=== PATIENT | male | born 1955 | race Caucasian/White ===

== ENCOUNTER 2018-03-13 10:44 | Day surgery (SDC) | payer MEDICARE ==
[2018-03-13] MEDS ORDERED: EPINEPHrine INJ 1 MG/ML 1ML AMP (10:45)
[2018-03-13] MEDS ORDERED: ROPIvacaine 0.5% 30 ML INJECTION (J2795 PER 1MG) (10:45)
[2018-03-13] MEDS ORDERED: dexameTHASONE 10 MG/1 ML VIAL PRES.FREE (J1100) (10:45)
[2018-03-13] MEDS: LR 1,000 ML IV (11:30)
[2018-03-13] MEDS ORDERED: fentaNYL 100 MCG/2 ML INJECTION (J3010) As Ordered ×2 (12:24→13:16)
[2018-03-13] MEDS ORDERED: MIDAZOLAM INJ 2 MG/2 ML VIAL (J2250) As Ordered ×2 (12:24→13:16)
[2018-03-13] MEDS: MIDAZOLAM INJ 2 MG/2 ML VIAL (J2250) IV (12:32)
[2018-03-13] MEDS: fentaNYL 100 MCG/2 ML INJECTION (J3010) IV ×3 (12:32→15:45)
[2018-03-13] MEDS ORDERED: LIDOCAINE 2% INJ 100 MG/5 ML SDV (FOR ANES.) As Ordered (13:16)
[2018-03-13] MEDS ORDERED: PROPOFOL 200 MG/20 ML VIAL As Ordered ×2 (13:16→14:58)
[2018-03-13] MEDS ORDERED: dexameTHASONE 4 MG/ML 1ML VIAL (J1100) As Ordered (13:16)
[2018-03-13] MEDS ORDERED: ONDANSETRON 4MG/2ML VIAL (J2405) As Ordered (13:16)
[2018-03-13] MEDS ORDERED: HYDROmorphone HCL 2 MG/ML 1ML VIAL (J1170) As Ordered (13:16)
[2018-03-13] MEDS ORDERED: ROCURONIUM BROMIDE 50 MG/5 ML VIAL As Ordered ×2 (13:16→14:23)
[2018-03-13] MEDS ORDERED: GLYCOPYRROLATE INJ 0.2 MG/ML 2 ML VIAL As Ordered ×3 (13:29→13:30)
[2018-03-13] MEDS ORDERED: NEOSTIGMINE 10 MG/10 ML VIAL (J2710) As Ordered (13:30)
[2018-03-13] MEDS ORDERED: ePHEDrine SULFATE 25 MG/5 ML(5MG/ML) SYRINGE As Ordered (14:03)
[2018-03-13] MEDS ORDERED: LABETALOL HCL 100 MG/20 ML VIAL As Ordered (14:30)
[2018-03-13] MEDS ORDERED: NORCO, ANEXSIA 5/325MG TABLET (HYDROcodone/ACETAMINOPHEN) As Ordered (15:36)
[2018-03-13] MEDS ORDERED: ONDANSETRON 4MG/2ML VIAL (J2405) IV (15:45)
[2018-03-13] MEDS ORDERED: LR 1,000 ML IV ×2 (15:45)
[2018-03-13] MEDS ORDERED: oxyCODONE 5MG TAB PO ×2 (15:45→16:00)
[2018-03-13] MEDS: NORCO, ANEXSIA 5/325MG TABLET (HYDROcodone/ACETAMINOPHEN) PO (15:45)
== END 2018-03-13 17:45 | disposition home or self-care (01) ==
LOC: M SDC 17:45
DX: S82.851A Displaced trimalleolar fracture of right lower leg, initial encounter for closed fracture (principal); W19.XXXA Unspecified fall, initial encounter; Y93.89 Activity, other specified; Y92.89 Other specified places as the place of occurrence of the external cause; Y99.8 Other external cause status; I25.10 Atherosclerotic heart disease of native coronary artery without angina pectoris; I25.2 Old myocardial infarction; I10 Essential (primary) hypertension; E78.00 Pure hypercholesterolemia, unspecified; E04.1 Nontoxic single thyroid nodule; K57.32 Diverticulitis of large intestine without perforation or abscess without bleeding; K21.9 Gastro-esophageal reflux disease without esophagitis; M12.9 Arthropathy, unspecified; M54.9 Dorsalgia, unspecified; R06.83 Snoring; C61 Malignant neoplasm of prostate; R32 Unspecified urinary incontinence; Z79.899 Other long term (current) drug therapy; Z79.82 Long term (current) use of aspirin; Z72.0 Tobacco use; Z98.84 Bariatric surgery status; Z92.3 Personal history of irradiation
CPT/HCPCS: 27822

== ENCOUNTER → 2018-09-04 | Outpatient (CLI) | payer MEDICARE ==
[~2018-09-04] MED LIST: AMLO5TAB6; ASPI1CHW2 PO; ASPI1TAB PO; ASPI325T PO; IBUP80TA PO; METO100T5 PO; MS C15TA8 PO; MULT1TAB10 PO; OMEP40CA2 PO; OXYC1TAB15 PO; PARO40TA2; PERC5TAB12 PO; PRAV40TA2; RANI150T PO; SENN-23 PO; VALS1TAB47; VITA500T3 PO
[2018-09-04 16:24] LABS: HEMATOCRIT 41.2 % (42.0-52.0); MEAN CORPUSCULAR HEMOGLOBIN 28.6 pg (27.0-33.0); MEAN CORPUSCULAR HGB CONC 31.6 g/dl (32.0-36.5); MEAN CORPUSCULAR VOLUME 90.7 fl (80.0-96.0); PLATELET COUNT, AUTOMATED 335 10^3/uL (150-450); RED BLOOD COUNT 4.54 10^6/uL (4.30-6.10); WHITE BLOOD COUNT 6.8 10^3/uL (4.0-10.0)
[2018-09-04 16:36] LABS: INR 0.98; PARTIAL THROMBOPLASTIN TIME 27.5 SECONDS (25.4-37.6); PROTHROMBIN TIME 13.1 SECONDS (12.1-14.4)
[2018-09-04 16:49] LABS: BLOOD UREA NITROGEN 13 MG/DL (7-18); CALCIUM LEVEL 8.9 MG/DL (8.8-10.2); CARBON DIOXIDE LEVEL 27 MEQ/L (21-32); CHLORIDE LEVEL 107 MEQ/L (98-107); CREATININE FOR GFR 1.15 MG/DL (0.70-1.30); GLOMERULAR FILTRATION RATE > 60.0 (>49); GLUCOSE, FASTING 108 MG/DL (70-100); POTASSIUM SERUM 4.1 MEQ/L (3.5-5.1); SODIUM LEVEL 140 MEQ/L (136-145)
--- NOTE | 2018-09-04 16:59 | REP ---
Chest two views HISTORY: Preop Comparison: 08/31/2011 The lungs are clear. There is pleural scarring along the left lateral border of the heart. The heart is normal in size. The pulmonary vasculature is normal in appearance. The bony structure is intact. IMPRESSION: No acute disease. Electronically Signed by Darren Padgett MD 09/04/2018 04:50 P
--- NOTE | 2018-09-04 22:32 | ECGEPIP ---
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 Electronically Signed On 09-04-2018 22:32:02 EST by Dyllan Mckenna
== END ==
LOC: M LAB 15:51
PROVIDERS: ATTEND Internal Medicine Cardiovascular Disease
DX: Z01.818 Encounter for other preprocedural examination (principal); S82.201A Unspecified fracture of shaft of right tibia, initial encounter for closed fracture; X58.XXXA Exposure to other specified factors, initial encounter; Y92.9 Unspecified place or not applicable

== ENCOUNTER 2018-09-06 09:56 | Day surgery (SDC) | payer MEDICARE ==
[~2018-09-06] VITALS: Ht 180.3 cm; Wt 99.2 kg
[~2018-09-06 09:56] MED LIST changes: -ASPI1TAB PO; -ASPI325T PO; -MS C15TA8 PO; -PERC5TAB12 PO; -SENN-23 PO
[2018-09-06] MEDS ORDERED: LIDOCAINE 1% MDV 20ML VIAL ONE (09:57)
[2018-09-06] MEDS ORDERED: SODIUM CHLORIDE 0.9% ONE (09:57)
[2018-09-06] MEDS ORDERED: ROPIvacaine 0.5% 30 ML INJECTION (J2795 PER 1MG) ONE (09:57)
[2018-09-06] MEDS ORDERED: ceFAZolin 2 GM/D5W 50 ML IV BAG (J0690 PER 500MG) As Ordered ONE (10:18)
[2018-09-06] MEDS ORDERED: LR 1,000 ML IV ONE (10:30)
[2018-09-06] MEDS ORDERED: ROCURONIUM BROMIDE 50 MG/5 ML VIAL As Ordered ONE ×2 (12:48→14:19)
[2018-09-06] MEDS ORDERED: fentaNYL 100 MCG/2 ML INJECTION (J3010) As Ordered ONE ×2 (12:48→13:22)
[2018-09-06] MEDS ORDERED: LIDOCAINE 2% INJ 100 MG/5 ML SDV (FOR ANES.) As Ordered ONE (12:48)
[2018-09-06] MEDS ORDERED: MIDAZOLAM INJ 2 MG/2 ML VIAL (J2250) As Ordered ONE (12:48)
[2018-09-06] MEDS ORDERED: PROPOFOL 200 MG/20 ML VIAL As Ordered ONE (12:48)
[2018-09-06] MEDS ORDERED: ceFAZolin 1GM INJ (J0690 PER 500MG) As Ordered ONE (13:38)
[2018-09-06] MEDS ORDERED: METOPROLOL 5 MG/5 ML VIAL As Ordered ONE (13:52)
[2018-09-06] MEDS ORDERED: HYDROmorphone HCL 2 MG/ML 1ML VIAL (J1170) As Ordered ONE (14:22)
[2018-09-06] MEDS ORDERED: SEVOFLURANE INHAL SOLN 250 ML BTL As Ordered ONE (14:27)
[2018-09-06] MEDS ORDERED: ePHEDrine SULFATE 25 MG/5 ML(5MG/ML) SYRINGE As Ordered ONE (14:54)
[2018-09-06] MEDS ORDERED: SUGAMMADEX SODIUM 500 MG/5 ML VIAL (BRIDION) As Ordered ONE (15:02)
[2018-09-06] MEDS ORDERED: TRANEXAMIC ACID 100 MG/ML 10ML VIAL As Ordered ONE (15:02)
[2018-09-06] MEDS ORDERED: PERCOCET 5MG/325MG TAB As Ordered ONE (15:47)
[2018-09-06] MEDS ORDERED: PERCOCET 5MG/325MG TAB PO PRN (16:00)
[2018-09-06] MEDS ORDERED: fentaNYL 100 MCG/2 ML INJECTION (J3010) IV PRN (16:00)
[2018-09-06] MEDS ORDERED: LR 1,000 ML IV SCH ×2 (16:00→17:15)
[2018-09-06] MEDS ORDERED: HYDROMORPHONE HCL 0.5 MG/ 0.5 ML SYRINGE (J1170 PER 1) IV PRN (16:00)
[2018-09-06] MEDS ORDERED: ONDANSETRON 4MG/2ML VIAL (J2405) IV PRN ×2 (16:00→17:15)
[2018-09-06 16:44] VITALS: BP 164/82
--- NOTE | 2018-09-06 16:59 | RO ---
DATE OF PROCEDURE: 09/06/2018 PREOPERATIVE DIAGNOSIS: Right distal third tibia spiral fracture. POSTOPERATIVE DIAGNOSIS: Right distal third tibia spiral fracture. PLANNED PROCEDURE: Open reduction internal fixation (ORIF) tibial shaft fracture. PROCEDURE PERFORMED: Open reduction internal fixation tibial shaft fracture (15-hole anterolateral Synthes precontoured distal tibia plate). SURGEON: Dr. Kenyon Colindres FILM AND VIDEO GRAPHICS DESIGNER: TYPE OF ANESTHESIA: General anesthetic. SALESPERSON YARD GOODS: Dr. Ghosh OPERATIVE PREAMBLE: This 62-year-old man was rough-housing with his child. He fell down and sustained a spiral fracture of his distal tibia. I saw and assessed him in the clinic. I offered him surgical versus nonsurgical management as it looked like it was appropriately reduced in the cast. He wanted operative management as he felt like he was getting a little bit claustrophobic in the cast and would rather have it definitively dealt with with no risk of malrotation. His other relevant history is that he was a recent isre-c-elyw-a-day smoker, has been cutting back, as well as apparently having alcohol dependence as a history from his brother, and his right ankle had open reduction internal fixation by Dr. Morales about 3 months ago for an ankle fracture. I saw him in preoperative holding. I confirmed that he wanted to go ahead. Marked the site. Removed the cast to make sure that the skin was intact and ready for surgery. There was no blistering, a positive wrinkle sign. I reminded him of the pros and cons, risks and benefits of proceeding including but not limited to infection, neurovascular injury, stiffness, bleeding, delayed mal or nonunion, need for further surgery as well as anesthetic complications and . He wanted to go ahead, so we proceeded. DESCRIPTION OF PROCEDURE: The patient was brought to the operating theater, administered a general anesthetic. He was placed supine on the radiolucent table. The limb had been previously marked. A bone foam leg positioner was placed with a bump under the right hip. We prepped and draped the leg in the usual sterile fashion, allowed the prep to thoroughly dry for 3 minutes. Performed a preoperative time-out. Obtained AP lateral radiographs, confirmed the fracture site. I made a long anteriorly-based incision 1 cm lateral to the tibial subcutaneous border. This was from about the midshaft down to the ankle joint. I carried the dissection down through skin and subcutaneous tissue and achieved meticulous hemostasis. Just prior to this, I had exsanguinated the limb using a sterile 4-inch Esmarch, and we had previously placed a 34-inch tourniquet on the thigh, which was inflated to 250 mmHg for the duration of the case and let down prior to the end of the case. Total tourniquet time was 101 minutes. I had also ensured that the patient received one dose of preoperative intravenous Ancef 2 grams prior to skin incision as well. Once the approach was complete, I identified the subcutaneous border of the tibia. I made an incision along the anterior compartment, about 5 mm off on the lateral side of the subcutaneous border/anterior border of the tibia. I used a galvan elevator to elevate the anterior compartment off the anterolateral aspect of the tibia along its length from the fracture site all the way down to the ankle. I protected the tibialis anterior and retracted the neurovascular bundle along with the anterior compartment laterally. I identified the fracture site, spiral fracture down distally that seemed to curve proximal medial, so then I did elevate some of the medial periosteum around the proximal end of the fracture. I keyed open the fracture and cleared out some initial callus. I used the two point reduction forceps as well as longitudinal traction and internal rotation of the foot to achieve anatomic reduction of the fracture. I confirmed this both visually and through AP lateral radiographs. I inserted lag by technique screws, two fully-threaded 3.5 mm cortical screws in lag screw fashion across the spiral aspect of the fracture. I removed the clamps, and this held it nicely. Next, I selected a 15-hole anterolateral precontoured Synthes distal tibia plate. Set down nicely on the bone, but I did have to precontour one of the distal medial screw holes so that it sat down more onto the anterior aspect of the bone. I ensured that this was well proximal to the joint. I then placed another 3.5 mm fully-threaded cortical lag screw through the plate and into again the proximal spike of the spiral fracture. I took AP lateral radiographs to confirm plate position. It was sitting off a touch, 1 or 2 mm proximally, but it was sitting down anatomically and quite nicely along most of its length and distally at the ankle. I inserted more cortical screws in the proximal plate to achieve compression of the plate down to the bone. I then inserted all but the most medial locking screw into the most distal transverse nature of the plate. These measured anywhere from [address] up to 48 mm long screws. Unfortunately, the medial most screw encountered the medial malleolus screws that were previously placed, so I did not place a screw in that. Other than that, I filled most of the plate with more locking screws. I achieved at least 4 or 5 locking screws proximally and distally to the fracture as well as lagging the fracture with two screws, as well as another lag screw through the plate. This was a very strong construct. I took final AP lateral radiographs to ensure that the plate was appropriately positioned, which it was and the fracture anatomically reduced and compressed nicely. No rotational malalignment of the foot was noted. I then thoroughly irrigated the wound with normal saline mixed with cefazolin. I closed the subcutaneous tissue with interrupted #2-0 Vicryl sutures. I made the decision not to close the compartments intraoperatively. I then closed the skin with donnie. Skin was cleaned with wet and dry dressing followed by application of Adaptic, 4 x 8 gauze and ABD. We used sterile cast padding, 6 inches, to place a below-knee three-sided Plaster of Natty splint and wrapped it with 6-inch Leander bandages. Foot was in neutral position. Drapes were taken down, patient woken up and transferred off the operating table and taken to the postanesthetic care unit in stable condition. All sponge, needle, and instrument counts were correct and there were no complications. Estimated blood loss 100 mL. The plan for the patient is to be non-weightbearing/toe-touch weightbearing approximately 15 kg for the first 6 weeks, progress his weight bearing up to about 30 kg for the next 4 weeks after that, and then gradually to full weightbearing around 10 week postoperatively per the AO trauma guidelines. I did place him in a splint that he will remain in for the first 2 weeks as he is a slightly unreliable person, and this could help for pain and swelling as well as additional stability while he is getting around in the initial postoperative period. I would like to see him back in the clinic in about 3 days. Also, they called me from the recovery room, and the patient is in quite a bit of pain, presumably due to his history of alcohol dependence and so anesthesia plans to perform a postoperative block for his pain. He can go home if his pain is under control, and he is comfortable, but I do imagine that he will likely stay at least overnight. I have ordered compartment checks of the right lower extremity every 4 hours overnight and encouraged him to elevate it. I also ordered physical therapy for crutch teaching.
--- NOTE | 2018-09-06 17:02 | REP ---
FLUOROSCOPIC GUIDANCE FOR ORIF RIGHT DISTAL TIBIA FRACTURE: 09/06/2018. Clinical history: Trauma right tibia fracture. Findings: Three images from C-arm fluoroscopy provided to Dr. Colindres of the orthopedic division for evaluation of the right tibial fracture. Hardware from the previous ORIF of the fibula is noted. The plate and multiple screw fixation of the distal tibial fracture is noted with essentially anatomic alignment. Fluoroscopy time: 14 seconds. Electronically Signed by Korey Mendez MD 09/06/2018 07:56 P
[2018-09-06] MEDS ORDERED: ONDANSETRON 4 MG TAB (S0181) PO PRN (17:15)
[2018-09-06] MEDS ORDERED: MORPHINE SULFATE ORAL SOLN 10 MG/5 ML UD PO PRN (17:30)
[2018-09-06] MEDS ORDERED: ACETAMINOPHEN TAB 650MG DOSE (2X325MG) PO PRN (17:30)
[2018-09-06 17:45] VITALS: BP 148/80
[2018-09-06] MEDS: MORPHINE 4 MG/ML 1ML VIAL/SYRINGE (J2270) IV PRN ×2 (18:37→22:07)
[2018-09-06 18:45] VITALS: BP 156/72
[2018-09-06] MEDS: PERCOCET 5MG/325MG TAB PO PRN (19:15)
[2018-09-06 19:45] VITALS: BP 156/74
[2018-09-06 22:00] VITALS: BP 150/68
[2018-09-07] MEDS: PERCOCET 5MG/325MG TAB PO PRN ×3 (00:05→10:40)
[2018-09-07 02:00] VITALS: BP 151/72
[2018-09-07] MEDS: MORPHINE 4 MG/ML 1ML VIAL/SYRINGE (J2270) IV PRN ×2 (03:53→05:57)
[2018-09-07 06:00] VITALS: BP 155/75
[2018-09-07] MEDS ORDERED: PERC5TAB12 PO (06:18)
[2018-09-07] MEDS ORDERED: SENN-23 PO (06:18)
[2018-09-07] MEDS ORDERED: ASPI325T PO (06:18)
[2018-09-07] MEDS ORDERED: MS C15TA8 PO (08:22)
[2018-09-07] MEDS ORDERED: ASPI1TAB PO (08:22)
--- NOTE | 2018-09-07 08:39 | IPN ---
DATE: 09/07/2018 CHIEF COMPLAINT Postoperative day #1 right tibia ORIF. HISTORY OF PRESENT ILLNESS: 62-year-old man is now postoperative #1 from right tibia open reduction internal fixation. Performed through an anterior approach and with the anterolateral plate. Surgery went well. All three compartments opened. He did well overnight aside from requiring some oral and IV analgesia. Other than complaining about some pain at the fracture site, no concerns from him in the nurses. PHYSICAL EXAMINATION Vital signs this morning: temperature 98.5. Blood pressure 155/75, pulse rate 99. 18, resp rate, 98% on room air. He is alert and oriented times three. He is sitting in the bed, appears comfortable. Conversation is good and easy. Mood and affect good, pleasant and positive. Examination of his right lower extremity reveals foot to be in situ. His leg is elevated. He is able to wiggle his toes. Foot is warm and well-perfused. Slightly decreased sensation in the tips of the toes. Compartments soft. No problems with the contralateral lower extremity. ASSESSMENT/PLAN This 62-year-old man is toe-touch weightbearing on the right lower extremity. He should be ambulating with crutches. He should be getting up and once we have his pain controlled and he is comfortable, he can be to home for followup in either 3 days or 2 weeks time. We have advised him to be on a slightly higher dose of his normal 81 mg aspirin if he tolerates it for venous thromboembolism (VTE) prophylaxis once he goes home. We have also given him a small dose of MS Contin to try and control his pain. We have also changed him to an observation stay as it seems unlikely that he may be going home today, but hopefully he is discharged home in the next 1 to 2 days.
[2018-09-07] MEDS ORDERED: MORPHINE 15 MG SA TAB PO SCH (09:00)
== END 2018-09-07 12:45 | disposition home or self-care (01) ==
LOC: M SDC 09:56 → M MS5PR 16:45 → M SDC 09-07 12:45
PROVIDERS: ATTEND Orthopaedic Surgery Sports Medicine
DX: S82.241A Displaced spiral fracture of shaft of right tibia, initial encounter for closed fracture (principal); W19.XXXA Unspecified fall, initial encounter; Y93.83 Activity, rough housing and horseplay; Y92.9 Unspecified place or not applicable; Y99.9 Unspecified external cause status; I10 Essential (primary) hypertension; I25.10 Atherosclerotic heart disease of native coronary artery without angina pectoris; E78.00 Pure hypercholesterolemia, unspecified; E04.1 Nontoxic single thyroid nodule; M12.9 Arthropathy, unspecified; M54.9 Dorsalgia, unspecified; Z79.899 Other long term (current) drug therapy; Z79.82 Long term (current) use of aspirin; Z72.0 Tobacco use; Z79.3 Long term (current) use of hormonal contraceptives; Z98.84 Bariatric surgery status; Z85.46 Personal history of malignant neoplasm of prostate; Z87.81 Personal history of (healed) traumatic fracture
CPT/HCPCS: 27758; 76000; 97116; C1713; G0378; J0690; J1170; J2250; J2270; J2795; J3010

== ENCOUNTER → 2021-03-01 | Outpatient (CLI) | payer MEDICARE ==
[~2021-03-01] MED LIST changes: +AMLO1TAB24; +AMLO25TA PO; -AMLO5TAB6; +ASPI-1 PO; +ASPI81CH33 PO; +ASPI81TA26 PO; +ATOR1TAB21 PO; +CYAN500T14 PO; +FURO20TA2 PO; +GABA-282 PO; +LABE100T4 PO; +LIDOCAINE 1% MDV 20ML VIAL As Ordered ONE; +MS C15TA8 PO; -OMEP40CA2 PO; +OMEP40CA4 PO; -OXYC1TAB15 PO; +OXYC7.5T3 PO; +PERC5TAB12 PO; +POTA10TA16 PO; +SENN-23 PO; -VALS1TAB47; +VALS1TAB67; -VITA500T3 PO
[2021-03-01 09:34] VITALS: BP 188/97
--- NOTE | 2021-03-01 17:24 | REP ---
INDICATION: LT THYROID NODULE. COMPARISON: None. TECHNIQUE: The procedure was performed under the direct supervision of Dr. Blount. The patient has a history of multiple nodules in the left thyroid seen on a previous ultrasound from [facility] performed on 01/06/2021. Request is made to biopsy the nodules that are greater than 1 cm. There are 2 nodules in the left thyroid that are greater than 1 cm. The risks and benefits of the procedure were explained to the patient and informed consent was obtained. The nodules were localized using ultrasound guidance. The skin was prepped and draped in a sterile fashion. 5 mL of 1% lidocaine was used as a local anesthetic. The nodule in the midportion of the thyroid was addressed 1st. Using ultrasound guidance 4 fine-needle aspirations were obtained using 25 gauge needles. The nodule in the inferior portion of the thyroid was then addressed. Again, using ultrasound guidance, 4 fine-needle aspirations were obtained using 25 gauge needles. Estimated blood loss: Less than 1 mL The patient tolerated the procedure well and there were no immediate complications. After the appropriate amount to monitor convalescence the patient was discharged from the department. FINDINGS: None IMPRESSION: Ultrasound-guided left thyroid biopsy. <Electronically signed by Vince Gay > 03/01/21 1541 <Electronically signed by Sher Blount > 03/01/21 [id number]
== END ==
LOC: M IRPRO 08:45
PROVIDERS: ATTEND Otolaryngology
DX: D34 Benign neoplasm of thyroid gland (principal)

== ENCOUNTER → 2021-03-04 | Outpatient (CLI) | payer MEDICARE ==
[~2021-03-04] MED LIST changes: -LIDOCAINE 1% MDV 20ML VIAL As Ordered ONE
[2021-03-04 15:18] LABS: FREE T3 2.9 PG/ML (2.2-4.0); FREE T4 0.73 NG/DL (0.76-1.46); THYROID STIMULATING HORMONE 1.13 uIU/ML (0.358-3.740)
== END ==
LOC: M LAB 14:07
PROVIDERS: ATTEND Otolaryngology
DX: E04.1 Nontoxic single thyroid nodule (principal)

== ENCOUNTER → 2021-06-02 | Outpatient (CLI) | payer MEDICARE ==
[~2021-06-02] MED LIST changes: +EZET10TA21 PO; +LIDOCAINE 1% MDV 20ML VIAL As Ordered ONE; +SPIR-10 PO; +[UNRECOGNIZED DRUG - CODE] PO
[2021-06-02 11:19] VITALS: BP 146/85
--- NOTE | 2021-06-02 15:49 | REP ---
INDICATION: LT THYROID NODULE. COMPARISON: None. TECHNIQUE: The procedure was performed under the direct supervision of Dr. Blanchard. The patient has a history of multiple nodules in the left thyroid seen on a previous ultrasound from [facility] performed on 01/06/2021. Patient had a biopsy of the largest nodules on the left on 03/01/2021. The samples of the nodule in the inferior portion of the thyroid were non-diagnostic. The patient is referred for re-biopsy of the left inferior thyroid biopsy. The risks and benefits of the procedure were explained to the patient and informed consent was obtained. The left inferior thyroid nodule was localized using ultrasound guidance. The skin was prepped and draped in a sterile fashion. 4 mL of 1% lidocaine was used as a local anesthetic. Using ultrasound guidance 6 fine-needle aspirations were obtained using 25 gauge needles. Estimated blood loss: Less than 1 mL. The patient tolerated the procedure well and there were no immediate complications. After the appropriate amount to monitor convalescence the patient was discharged from the department. FINDINGS: None IMPRESSION: Ultrasound-guided left inferior thyroid nodule biopsy. <Electronically signed by Vince Gay > 06/02/21 1528 <Electronically signed by Bull Blanchard > 06/02/21 [id number]
== END ==
LOC: M IRPRO 10:35
PROVIDERS: ATTEND Otolaryngology
DX: D34 Benign neoplasm of thyroid gland (principal)

== ENCOUNTER → 2022-06-01 | Outpatient (CLI) | payer MEDICARE ==
[~2022-06-01] MED LIST changes: +E-Z-GAS II EFFERVESCENT PACKET (SODIUM BICARB./CITRIC ACID/SIMETHICONE) As Ordered ONE; +E-Z-HD 98% w/w 340GM SUSP BTL As Ordered ONE; +E-Z-PAQUE 96% w/w SUSP 176GM BTL As Ordered ONE; -LABE100T4 PO; +LABE100T6 PO; -LIDOCAINE 1% MDV 20ML VIAL As Ordered ONE; +POTA-149 PO; -POTA10TA16 PO
== END ==
LOC: M RAD 09:10
PROVIDERS: ATTEND Physician Assistant Medical
DX: R13.10 Dysphagia, unspecified (principal)

== ENCOUNTER 2022-12-25 11:33 | Day surgery (SDC) | payer MEDICARE ==
[~2022-12-25] VITALS: Ht 180.3 cm; Wt 121.6 kg
[~2022-12-25 11:33] MED LIST changes: -E-Z-GAS II EFFERVESCENT PACKET (SODIUM BICARB./CITRIC ACID/SIMETHICONE) As Ordered ONE; -E-Z-HD 98% w/w 340GM SUSP BTL As Ordered ONE; -E-Z-PAQUE 96% w/w SUSP 176GM BTL As Ordered ONE; +LIDOCAINE 2% MDV 20ML VIAL As Ordered ONE; +NS 1,000 ML IV ONE; +ROSU20TA61 PO; +fentaNYL 100 MCG/2 ML INJECTION As Ordered ONE; +propofoL 200 MG/20 ML VIAL As Ordered ONE
[2022-12-25] MEDS ORDERED: propofoL 200 MG/20 ML VIAL As Ordered ONE (13:02)
[2022-12-25] MEDS ORDERED: ePHEDrine SULFATE 25 MG/5 ML(5MG/ML) SYRINGE As Ordered ONE (13:16)
[2022-12-25 13:47] VITALS: TEMP 97.9
[2022-12-25 14:15] VITALS: BP 124/60; O2SAT 98
== END 2022-12-25 14:15 | disposition home or self-care (01) ==
LOC: M OPP 11:33
PROVIDERS: ATTEND Internal Medicine Gastroenterology
DX: D12.2 Benign neoplasm of ascending colon (principal); K57.30 Diverticulosis of large intestine without perforation or abscess without bleeding; K64.0 First degree hemorrhoids; Z86.010 Personal history of colon polyps; K22.89 Other specified disease of esophagus; K44.9 Diaphragmatic hernia without obstruction or gangrene; K28.9 Gastrojejunal ulcer, unspecified as acute or chronic, without hemorrhage or perforation; Z98.84 Bariatric surgery status; R12 Heartburn
CPT/HCPCS: 43239; 45385; 88305; J3010